=== PATIENT | male | born 1980 | race Caucasian/White ===

== ENCOUNTER 2022-03-12 16:45 | Outpatient (CLI) | payer OTHER, SELFPAY ==
[2022-03-20 22:07] LABS: Calprotectin, Stool 7 mcg/g
== END 2022-03-12 16:46 | disposition home or self-care (01) ==
LOC: ANHLAB 16:46
PROVIDERS: PCP Internal Medicine; Visit Provider Nurse Practitioner
DX: R10.9 Unspecified abdominal pain (principal); R19.4 Change in bowel habit; R19.7 Diarrhea, unspecified
CPT/HCPCS: 83993; 87045; 87427

== ENCOUNTER 2023-07-30 18:03 | Emergency (ER) | payer OTHER, SELFPAY ==
--- NOTE | ~2023-07-30 | XR_ITS ---
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 RESULT: Lines, tubes, and devices: None. Lungs and pleura: Small triangle opacity projecting over the right heart, likely in the anterior rig ht middle lobe. Lungs otherwise clear. Cardiomediastinal silhouette: Stable. Other: No acute osseous or upper abdominal finding. IMPRESSION: No acute cardiopulmonary process. Triangular focus of atelectasis or scar in the right middle lobe. Reviewed, dictated and finalized at location K. PING MACHINE OPERATOR IMPRESSION: No acute cardiopulmonary process. Triangular focus of atelectasis or scar in th e right middle lobe.
[2023-07-30 18:36] VITALS: BP 138/88; PULSE 90; RESP 16; TEMP 36.4; O2SAT 96
--- NOTE | 2023-07-30 19:17 | ED.GENADULT ---
HPI - General Adult General Chief complaint: Upper Respiratory Infection Stated complaint: Cough Time Seen by Provider: 07/30/23 19:18 Source: patient, RN notes reviewed and old records reviewed Mode of arrival: ambulatory Limitations: no limitations History of Present Illness HPI narrative: 42 year old male presents to the [facility] with cough since early June. Has been treated June 16 with doxy and prednisone. Contact his primary care provider who called in Tessalon Perles and cefdinir on the 14 of July. A Medrol Dosepak on the 21 of July. Cough has been lingering, states I can feel my chest rattle. ? Related Data Home Medications Medication Instructions Recorded Confirmed lactobacillus combination no.4 3 3,000 mmu cells PO DAILY 10/04/19 07/30/23 billion cell capsule (Probiotic) fluoxetine 20 mg capsule 20 mg PO DAILY 04/21/23 07/30/23 viloxazine 200 mg capsule,extended 200 mg PO DAILY 04/21/23 07/30/23 release 24 hr (Qelbree) Allergies Allergy/AdvReac Type Severity Reaction Status Date / Time No Known Allergies Allergy Verified 04/21/23 07:13 Review of Systems Review of Systems: All systems reviewed & are unremarkable except as noted in HPI and below Constitutional: Constitutional: Reports no additional constitutional complaints Eyes: Eyes: Reports no additional eye complaints ENT: Reports system reviewed and no additional complaints, except as documented Cardiovascular: Cardiovascular: Reports no additional cardiovascular complaints, Denies chest pain and Denies dyspnea Respiratory: Respiratory: Reports chest congestion, Reports cough, Reports dyspnea and Reports wheezing Gastrointestinal: Gastrointestinal: Reports no additional gastrointestinal complaints, Denies abdominal pain, Denies nausea and Denies vomiting Musculoskeletal: Musculoskeletal: Reports no additional musculoskeletal complaints Integumentary/Breasts: Skin/Breast: Reports system reviewed and no additional complaints, except as docu Neurologic: Reports system reviewed and no additional complaints, except as documented Psychiatric: Psychiatric: Reports no additional psychiatric complaints Allergic/Immunologic: Allergic/Immunologic: Reports no additional allergic/immunologic complaints PMFSH Past Medical History Medical History Colon cancer screening Depression IBS (irritable bowel syndrome) Irritable bowel syndrome with diarrhea Irritable bowel syndrome with diarrhea Surgical History Surgical History History of hand surgery L thumb tendon surgery Family History Family History Father Hypertension Patient's father is in good health Mother Patient's mother is in good health Sibling Patient's brother is in good health Other Skin cancer Social History Social History Smoking status: Former smoker Alcohol intake: current Alcohol use details: social Substance use: never Comments At the time of my signature, I reviewed and agree with the nursing past medical, surgical, social, and family history. There is no relevant family history pertinent to the patient complaint. Exam Const: General: cooperative, healthy appearing, comfortable, no acute distress, well developed, alert and well nourished Nutritional Appearance: well nourished Orientation/consciousness: patient oriented x3 Limitations: no limitations HENMT: Head: normal to inspection Ears: hearing grossly normal bilaterally, external ears normal, TM's normal bilaterally, EAC's normal, mastoids normal and no periauricular adenopathy Face/Nose/Sinus: Normal external nose present, Normal nares present, Normal nasal mucous membranes and turbinates present, normal facial exam and face symmetric Face and sinus: normal
== END 2023-07-30 20:18 | disposition home or self-care (01) ==
PROVIDERS: Emergency Provider Nurse Practitioner; PCP Nurse Practitioner
DX: J98.11 Atelectasis (principal); Z79.899 Other long term (current) drug therapy; Z87.891 Personal history of nicotine dependence
CPT/HCPCS: 71046; 99213; G0463

== ENCOUNTER → 2023-08-10 15:20 | Outpatient (CLI) | payer OTHER, SELFPAY ==
--- NOTE | ~2023-08-10 | CT_ITS ---
EXAMINATION:CT chest high resolution wo nd DATE: 08/10/2023 15:41 INDICATION: Cough. TECHNIQUE: Computed tomography (CT) of the chest was performed without intravenous contrast. Automate d exposure control and iterative reconstruction technique were employed. The dose-length product (DLP ) was 448.36 mGy-cm. COMPARISON: Chest 2 views 07/30/2023 FINDINGS: There is mild scarring at the lung apices. Calcified pulmonary nodules are consistent with old granulomatous disease. There is mild atelectasis bilaterally. There are tree-in-bud opacities in the lower lobes, right worse than left. No pleural effusion. The heart size is normal. No pericardial effusion. There is wall thickening of the esophagus. There is diffuse hepatic steatosis. There is mi ld thoracic spondylosis. IMPRESSION: 1. Tree-in-bud opacities in the lower lobes, consistent with inflammation/infection. 2. Wall thickening of the esophagus suspicious for esophagitis. 3. Diffuse hepatic steatosis. Reviewed, dictated and finalized at location A. UTER PILOT IMPRESSION: 1. Tree-in-bud opacities in the lower lobes, consistent with inflammation/infec tion. 2. Wall thickening of the esophagus suspicious for esophagitis. 3. Diffuse hepatic steatosis.
== END ==
PROVIDERS: PCP Nurse Practitioner; Visit Provider Nurse Practitioner
DX: R05.9 Cough, unspecified (principal); K76.0 Fatty (change of) liver, not elsewhere classified
CPT/HCPCS: 71250

== ENCOUNTER 2023-11-23 14:06 | Outpatient (CLI) | payer OTHER, SELFPAY ==
--- NOTE | ~2023-11-23 | CT_ITS ---
EXAMINATION:CT diagnostic chest wo con DATE: 11/23/2023 14:21 INDICATION: Cough, unspecified. TECHNIQUE: Computed tomography (CT) of the chest was performed without intravenous contrast. Automate d exposure control and iterative reconstruction technique were employed. The dose-length product (DLP ) was 464.00 mGy-cm. COMPARISON: Chest CT 08/10/2023 FINDINGS: Calcified pulmonary nodules are consistent with old granulomatous disease. The tree-in-bud opacities in the lower lobes have resolved. No pleural effusion. The heart size is normal. No pericar dial effusion. There is wall thickening of the distal esophagus. There is diffuse hepatic steatosis. There is mild thoracic spondylosis. IMPRESSION: 1. Wall thickening of the distal esophagus suspicious for esophagitis. 2. Diffuse hepatic steatosis. Reviewed, dictated and finalized at location E.
== END 2023-11-23 14:07 ==
PROVIDERS: PCP Physician Assistant; Visit Provider Physician Assistant
DX: R05.9 Cough, unspecified (principal); J98.11 Atelectasis; J06.9 Acute upper respiratory infection, unspecified; K76.0 Fatty (change of) liver, not elsewhere classified
CPT/HCPCS: 71250

== ENCOUNTER 2024-11-30 16:26 | Emergency (ER) | payer OTHER, SELFPAY ==
[2024-11-30 16:45] VITALS: BP 141/90; PULSE 81; RESP 16; TEMP 36.3; O2SAT 99
--- NOTE | 2024-11-30 17:08 | ED_ITS ---
HPI - URI/Sore Throat General Chief Complaint: Upper Respiratory Infection Stated Complaint: SINUS CONGESTION Time Seen by Provider: 11/30/24 16:55 Source: patient and RN notes reviewed Mode of arrival: ambulatory Limitations: no limitations History of Present Illness HPI Narrative: 44-year-old male presents [facility] complaining of upper respiratory symptoms for 1 week. Patient said the symptoms started as a sore throat then progressed to with congestion and sinus pressure. Patient says he has been taking [id number] Zyrtec, ibuprofen, Sudafed for symptom management with mild relief. Patient said he does not feel like he is getting better he feels like his symptoms are worsening over the last 2 days. Patient says that the sinus pressure is worse reports now having green/yellow nasal discharge. Patient also reports having a productive cough and coughing up green/yellow discharge. Patient says the sinus pressure is worse with bending over at the waist. Patient has a history of pneumonia. Denies any other significant past medical history. Patient denies any fevers, body aches, chills, chest pain or shortness of breath. Related Data Home Medications ?Medication ?Instructions ?Recorded ?Confirmed ?Last Taken ?Type lactobacillus combination no.4 3 3,000 mmu cells PO DAILY 10/04/19 11/30/24 Unknown History billion cell capsule (Probiotic) fluoxetine 20 mg capsule 20 mg PO DAILY 04/21/23 11/30/24 Unknown History viloxazine 200 mg capsule,extended 200 mg PO DAILY 04/21/23 11/30/24 Unknown History release 24 hr (Qelbree) Allergies Allergy/AdvReac Type Severity Reaction Status Date / Time No Known Allergies Allergy Verified 11/30/24 16:44 Review of Systems Review of Systems: CONSTITUTIONAL: Denies fever, chills, body aches, or sweats. EYES: Denies visual changes, redness, or discharge. ENT: Denies rhinorrhea, or otalgia. Positive for congestion sore throat. CARDIOVASCULAR: Denies chest pain, palpitations, or edema. RESPIRATORY: Positive for cough. Negative for dyspnea. GASTROINTESTINAL: Denies abdominal pain, nausea, vomiting, or diarrhea. GENITOURINARY: Denies dysuria or hematuria. SKIN: Denies rash or itching. MUSCULOSKELETAL: Denies back pain, joint pain, or myalgia. NEUROLOGIC: Denies headache, numbness, or weakness. PSYCHIATRIC: Denies anxiety or depression. All other systems reviewed are negative, except as documented in HPI. [facility] Past Medical History Medical History Colon cancer screening Depression IBS (irritable bowel syndrome) Irritable bowel syndrome with diarrhea Irritable bowel syndrome with diarrhea Surgical History Surgical History History of hand surgery L thumb tendon surgery Family History Family History Father Hypertension Patient's father is in good health Mother Patient's mother is in good health Sibling Patient's brother is in good health Other Skin cancer Social History Social History (Updated 04/28/24 @ 07:15 by Priya Dumont CMA) Smoking status: Former smoker Alcohol intake: current Alcohol use details: social Substance use: never Current Housing: Decline to Answer Concerned About Future Housing: Decline to Answer Difficulty Paying Gas/Electric Bills: Decline to Answer Difficulty Paying for Meds: Decline to Answer Currently Unemployed: Decline to Answer Education: Decline to Answer Difficulty w/ Childcare or Family Care: Decline to Answer Comments At the time of my signature, I reviewed and agree with the nursing past medical, surgical, social, and family history. There is no relevant family history pertinent to the patient complaint. Exam Narrative: GENERAL: This is a well-nourished, well-developed adult, in no apparent distress. They are non ill-appearing, nontoxic appearing. HEAD: normocephalic, atraumatic. EYES: Sclera clear/white. Conjunctiva normal. Vision is grossly intact. Extraocular movements intact EARS: External ears normal, auditory canals clear and without drainage, TMs normal without perforation. Hearing grossly intact. NOSE: External nose normal with no obvious nasal discharge, nasal turbinates erythematous bilaterally, no rhinorrhea. Sinus tenderness to palpation to the maxillary sinuses. THROAT: Mucous membranes moist, posterior pharynx erythema without swelling, Uvula midline. Postnasal drip present. No exudate. NECK: Neck supple, non-tender without lymphadenopathy, masses or thyromegaly. CARDIOVASCULAR: Regular rate and rhythm without murmurs, gallops, or rubs. RESPIRATORY: Clear to auscultation. Breath sounds equal bilaterally. No wheezes, rales, or rhonchi. SKIN: warm, Dry, intact with no suspicious lesions or rash, good texture and turgor. NEURO: awake, alert, and oriented to person, place and time. There were no obvious focal neurologic abnormalities. EXTREMITIES: No joint tenderness, effusion, or edema noted. BACK: Nontender without deformity Course Course Emergency Course: Portions of this record may have been created with voice recognition software Level of Care: Express Care Visit Vital Signs Vital signs: Vital Signs Temperature 97.3 F L 11/30/24 16:45 Pulse Rate 81 11/30/24 16:45 Respiratory Rate 16 11/30/24 16:45 Blood Pressure 141/90 H 11/30/24 16:45 Pulse Oximetry 99 11/30/24 16:45 Temperature 97.3 F L 11/30/24 16:45 Pulse Rate 81 11/30/24 16:45 Respiratory Rate 16 11/30/24 16:45 Blood Pressure 141/90 H 11/30/24 16:45 Pulse Oximetry 99 11/30/24 16:45 Reviewed MDM - URI/Sore Throat MDM Narrative Medical decision making narrative: Patient likely started with a viral illness. Given patient's length of symptoms and that the symptoms have started to worsen around day 5/6 it is likely he is developing a secondary bacterial sinusitis. Will treat empirically with Augmentin. Discussed physical exam findings. Advised supportive measures and signs/symptoms to go to the ER. Pt is appropriate for outpt treatment and f/u. Differential Diagnosis Differential diagnosis: Likely upper respiratory infection, sinusitis and pharyngitis Critical Care Time Critical Care Time Critical Care Time: No Discharge Plan Discharge Clinical Impression: Acute bacterial rhinosinusitis Patient Disposition: Home Condition: Stable Instructions: Antibiotic Form, Sinusitis (ED) Additional Instructions: Take the antibiotics as directed and complete the course even if you start to feel better. You may use a Neti pot saline rinse 3 times a day with lukewarm distilled water. Continue to take Tylenol or Motrin for pain. Use a humidifier or vaporizer at night. Drink plenty of water. 8-10 glasses per day. Use flonase 2 times per day for 5 days then as needed Take mucinex 2 times per day and be sure to take with 8oz of water. Follow up with Primary provider in 3 days. Go to the ER if he develops fevers, difficulty breathing, worsening symptoms, or any other concerns. Patient Language: Nepalese Prescriptions: New amoxicillin-pot clavulanate 875-125 mg tablet 1 tablet PO Q12H 7 Days Qty: 14 0RF No Action (DME) Aerochamber MV Spacer See Rx Instructions .Route Qty: 1 0RF Rx Instructions: As directed Probiotic 3 billion cell capsule 3,000 mmu cells PO DAILY Rx Instructions: administer with a meal fluoxetine 20 mg capsule 20 mg PO DAILY Qelbree 200 mg capsule,extended release 24hr 200 mg PO DAILY albuterol sulfate 90 mcg/actuation HFA aerosol inhaler 2 inh inhalation Q4H PRN (Reason: shortness of breath, cough, or wheezing) Qty: 8.5 0RF Follow-up/Referrals: Gretchen Serna APRN [Primary Care Provider] - Time of Disposition: 17:07
== END 2024-11-30 17:13 | disposition home or self-care (01) ==
PROVIDERS: PCP Nurse Practitioner Family
DX: J01.90 Acute sinusitis, unspecified (principal); K58.9 Irritable bowel syndrome, unspecified; F32.A Depression, unspecified; Z87.891 Personal history of nicotine dependence
CPT/HCPCS: 99213; G0463

== ENCOUNTER 2025-01-18 18:34 | Emergency (ER) | payer OTHER, SELFPAY ==
--- OUTSIDE RECORDS SUMMARY | 2025-01-18 18:36 | XMS_ITS | Clinical Summary ---
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 Gender Identity Not on file Sexual Orientation Not on file Plan of Treatment Health Maintenance Due Date Last Done Comments Hepatitis C Virus (HCV) Screening 1982 TdaP Immunization 1982 Hepatitis B Immunization (1 of 3 - 19+ 3-dose series) 2001 Influenza Immunization (#1) 2024 05/16/2019 SARS-COV-2 Immunization ( season) 2024 08/13/2021, 10/23/2020, 09/13/2020 Respiratory Syncytial Virus (RSV) Immunization (Adult) (1 - 1-dose 75+ series) 2057 Meningococcal Immunization (ACWY) Aged Out No longer eligible b ased on patient's age to complete this topic Pneumococcal Immunization Combined Aged Out No longer eligible b ased on patient's age to complete this topic Rotavirus Immunization Aged Out No lo nger eligible based on patient's age to complete this topic
--- OUTSIDE RECORDS SUMMARY | 2025-01-18 18:36 | XMS_ITS | Encounter Summary ---
Author Organization [facility] Address [address] [place] [address] Care Team Providers Care Echo Vascular Tech Name Role Phone Amando Weir MD Primary Care Provider + Encounter Details Date Type Department Care Team (Late st Contact Info) Description 09/04/2016 Lab Requisition [facility] General Laboratory Services S Pending Sale To [facility] [address] [address] Andrea Leary MD NO ADDRESS ON FILE Encounter for general adult medical examination without abnormal findings Social History Tobacco Use Types Packs/Day Years Used Date Smoking Tobacco: Never Assessed Sex and Gender Information Value Date Recorded Sex Assigned at Not on file 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 Gender Identity Not on file Sexual Orientation Not on file documented as of this encounter Plan of Treatment Not on file documented as of this encounter Procedures Procedure Name Priority Date/Time Associated Diagnosis Comments URINALYSIS MICROSCOPY ONLY Routine 09/04/2016 10:30 AM SUMO WRESTLER Encounter for general adult medical examination without abnormal findings CBC WITH DIFFERENTIAL Routine 09/04/2016 10:30 AM SUMO WRESTLER Encounter for general adult medical examination without abnormal findings LIPID PANEL Routine 09/04/2016 10:30 AM SUMO WRESTLER Encounter for general adult medical examination without abnormal findings COMPREHENSIVE METABOLIC PANEL Routine 09/04/2016 10:30 AM SUMO WRESTLER Encounter for general adult medical examination without abnormal findings documented in this encounter Results * (ABNORMAL) URINALYSIS MICROSCOPY ONLY (09/04/2016 10:30 AM SUMO WRESTLER) WBC UA 0-2 0 - 2 /hpf 09/04/2016 4:14 PM [facility] - [facility] RBC UA 0-2 0 - 2 /hpf 09/04/2016 4:14 PM [facility] BACTERIA UA Negative Negative /hpf 09/04/2016 4:[address] [facility] LABORATORY SERVICES - [facility] HYALINE CAST 3-5(A) None Seen, 0-2 /lpf 09/04/2016 4:14 PM [facility] Urine URINE SPECIMEN OBTAINED BY CLEAN CATCH PROCEDURE / Unknown Collection / Unknown 09/04/2016 10:30 AM SUMO WRESTLER 09/04/2016 3:40 PM SUMO WRESTLER Andrea Leary MD URINE ORDERABLES Final Result Performing Organization Address City/State/[facility] Co de Phone Number [facility] [employer] [facility]# [id number] [address] [place] [address] * (ABNORMAL) CBC WITH DIFFERENTIAL (09/04/2016 10:30 AM SUMO WRESTLER) WBC 8.2 4.0 - 9.8 K/uL 09/04/2016 4:[address] [facility] LABORATORY SERVICES [facility] RBC 5.31 4.50 - 5.40 M/uL 09/04/2016 4:[address] [facility] LABORATORY SERVICES [facility] HEMOGLOBIN 15.7 13.6 - 16.5 g/dL 09/04/2016 4:[address] [facility]ATORY SERVICES [facility] HEMATOCRIT 47.1 40.0 - 48.0 % 09/04/2016 4:[address] [facility]AT[facility] SERVICES [facility] MCV 88.7 82.0 - 99.0 fL 09/04/2016 4:[address] [facility]ATORY [facility] MCH 29.6 27.2 - 32.6 pg 09/04/2016 4:[address] [facility]ATORY SERVICES [facility] MCHC 33.3 31.5 - 35.5 g/dL 09/04/2016 4:21 PM SUMO WRESTLER [facility] RDW 12.3 11.5 - 14.5 % 09/04/2016 4:21 PM SUMO WRESTLER [facility] - [facility] RDW-STDEV 39.7 37.1 - 48.7 fL 09/04/2016 4:[address] [facility] - [facility] PLATELETS 338 140 - 350 K/uL 09/04/2016 4:[address] [facility] - [facility] MPV 10.4 9.3 - 12.4 fL 09/04/2016 4:[address] [facility] NEUTROPHILS 63 % 09/04/2016 4:[address] [facility] LYMPHOCYTES 26 % 09/04/2016 4:21 PM SUMO WRESTLER [facility] MONOCYTES 6 % 09/04/2016 4:[address] [facility] EOSINOPHILS 2 % 09/04/2016 4:21 PM SUMO WRESTLER [facility] BASOPHILS 2 % 09/04/2016 4:21 PM SUMO WRESTLER [facility] IMMATURE GRANULOCYTES 1 % 09/04/2016 4:21 PM SUMO WRESTLER [facility] Comment:IG (Immature Granulo cyte) count includes Metamyelocytes, Myelocytes, and Promyelocytes NEUTROPHIL ABSOLUTE 5.18 1.90 - 7.00 K/uL 09/04/2016 4:[address] [facility] - [facility] LYMPHOCYTE ABSOLUTE 2.16 0.70 - 4.50 K/uL 09/04/2016 4:21 PM SUMO WRESTLER [facility] - [facility] MONOCYTE ABSOLUTE 0.49 0.10 - 1.30 K/uL 09/04/2016 4:21 PM SUMO WRESTLER [facility] - [facility] EOSINOPHIL ABSOLUTE 0.19 0.00 - 0.70 K/uL 09/04/2016 4:21 PM [email or web address] LABORATORY SERVICES - [facility] BASOPHILS ABSOLUTE 0.12 0.00 - 0.20 K/uL 09/04/2016 4:[address] [facility] LAB[facility]ATORY [facility] - [facility] IMMATURE GRANULOCYTES ABSOLUTE 0.04(H) 0.00 - 0.03 K/uL 09/04/2016 4:[address] [facility] - [facility] Blood Collection / Unknown 09/04/2016 10:30 AM SUMO WRESTLER 09/04/2016 3:40 PM SUMO WRESTLER us Andrea Leary MD HEMATOLOGY ORDERABLES Final Result [facility] [employer] [facility] CLIA# [id number] [address] [place] [address] * (ABNORMAL) LIPID PANEL (09/04/2016 10:30 AM SUMO WRESTLER) CHOLESTEROL 221(H) <200 mg/dL 09/04/2016 8:[address] [facility] [employer] [facility] TRIGLYCERIDE 162(H) <150 mg/dL 09/04/2016 8:[address] [facility] [employer] [facility] HDL 41 40 - 59 mg/dL 09/04/2016 8:[address] [facility] [employer] [facility] LDL CALCULATED 148(H) <100 mg/dL 09/04/2016 8:[address] [facility] [employer] [facility] NON-HDL CHOLESTEROL 180(H) <130 mg/dL 09/04/2016 8:[address] [facility] [employer] [facility] Blood Collection / Unknown 09/04/2016 10:30 AM SUMO WRESTLER 09/04/2016 3:40 PM SUMO WRESTLER Narrative [facility] LABORATORY [facility] - 09/04/2016 8:10 PM SUMO WRESTLER TOTAL CHOLESTEROL mg/dL Desirable <200 Borderline high 200-239 High >=240 TRIGLYCERIDES mg/dL Normal <150 Borderline high 150-199 High 200-499 Very high >=500 HDL CHOLESTEROL mg/dL Low <40 Normal 40-59 Desirable >=60 NON HDL CHOLESTEROL mg/dL Optimal <130 Near Optimal 130-159 Borderline High 160-189 Very High >=190 Calculated LDL mg/dL Optimal <100 Near Optimal 100-129 Borderline High 130-159 High 160-189 Very High >=190 ATPIII Guidelines Reference Ranges for Lipid Panels (NCEP/AMA) Andrea Leary MD CHEMISTRY ORDERABLES F inal Result [facility] [employer] [facility] CLIA# [id number] [address] [place] [address] [place] CHAVEZ [address] * (ABNORMAL) COMPREHENSIVE METABOLIC PANEL (09/04/2016 10:30 AM SUMO WRESTLER) SODIUM 140 136 - 145 mmol/L 09/04/2016 8:10 PM [email or web address] LAB[facility]ATORY SERVICES - [facility] POTASSIUM 4.8 3.5 - 5.0 mmol/L 09/04/2016 8:10 PM [email or web address] [facility] - [facility] CHLORIDE 100 98 - 107 mmol/L 09/04/2016 8:10 PM [email or web address] [facility] - [facility] CO2 27 22 - 29 mmol/L 09/04/2016 8:10 PM [email or web address] [facility] - [facility] CALCIUM 10.3(H) 8.6 - 10.2 mg/dL 09/04/2016 8:10 PM [email or web address] [facility] - [facility] BUN 12 6 - 20 mg/dL 09/04/2016 8:10 PM [email or web address] [facility] - [facility] CREATININE 0.88 0.67 - 1.17 mg/dL 09/04/2016 8:10 PM [email or web address] [facility] - [facility] GLUCOSE 96 74 - 99 mg/dL 09/04/2016 8:10 PM [email or web address] [facility] - [facility] TOTAL PROTEIN 8.1 6.7 - 8.6 g/dL 09/04/2016 8:10 PM [email or web address] [facility] - [facility] ALBUMIN 5.2 3.5 - 5.2 g/dL 09/04/2016 8:10 PM [email or web address] [facility] - [facility] BILIRUBIN TOTAL 0.8 0.3 - 1.2 mg/dL 09/04/2016 8:10 PM [email or web address] [facility] - [facility] ALKALINE PHOSPHATASE 84 40 - 129 U/L 09/04/2016 8:10 PM [email or web address] [facility] AST 27 <41 U/L 09/04/2016 8:10 PM [email or web address] [facility] ALT 56(H) <42 U/L 09/04/2016 8:10 PM [email or web address] GFR >60 >=60 mL/min/1.7 3 sq meter 09/04/2016 8:10 PM [email or web address] Comment: eGFR has not been validated for use in the elderly (> 70 years of age), women, patients with serious co-morbid conditions, or persons with extremes of body size or muscle mass and should also be interpreted with caution in patients with acute kidney failure, dialysis dependent patients, patients reporting exceptional dietary intake (e.g. vegetarian diet, high protein diets, creatine supplementation), and patients with severe liver disease. Based on National Kidney Disease Education Program If patient is , please refer to the GFR result. GFR, >60 >=60 mL/min/1.7 3 sq meter 09/04/2016 8:10 PM SUMO WRESTLER [facility] LABORATORY SERVICES - [facility] ANION GAP 13 8 - 16 mmol/L 09/04/2016 8:10 PM SUMO WRESTLER [facility] LABORATORY SERVICES [facility] Blood Collection / Unknown 09/04/2016 10:30 AM SUMO WRESTLER 09/04/2016 3:40 PM SUMO WRESTLER Andrea Leary MD CHEMISTRY ORDERABLES F inal Result [id number] [address] [place] [address] documented in this encounter Visit Diagnoses Diagnosis Encounter for general adult medical examination without abnormal findings Routine general medical examination at a health care facility documented in this encounter Care Teams Echo Vascular Tech Relationship Specialty Start Date End Date Amando Weir MD [address] [place] [address] PCP - General Internal Medicine 09/04/16 documented as of this encounter
--- OUTSIDE RECORDS SUMMARY | 2025-01-18 18:36 | XMS_ITS | Clinical Summary ---
Author Organization [facility] Address [address] [place] [address] [place] [address] Care Team Providers Care Crester Name Role Phone Amando Weir MD Primary Care Provider + Allergies No known active allergies Medications albuterol (PROVENTIL HFA) 90 mcg/Actuation Inhalation HFAAIndications :Cough Take 2 Puffs by inhalation every 6 hours as needed. 1 Inhaler 1 0 Active Active Problems No known active problems Social History Tobacco Use Types Packs/Day Years Used Date Smoking Tobacco: Never Assessed Sex and Gender Information Value Date Recorded Sex Assigned at Not on file Legal Sex Male 5:50 AM HEALTH CARE TECHNICIAN Gender Identity Not on file Sexual Orientation Not on file Last Filed Vital Signs Vital Sign Reading Time Taken Comments Blood Pressure 110/80 08/09/2009 10:56 AM HEALTH CARE TECHNICIAN Pulse 72 08/09/2009 10:56 AM HEALTH CARE TECHNICIAN Temperature 36.4 C (97.6 F) 08/09/2009 10:56 AM HEALTH CARE TECHNICIAN Respiratory Rate 8 08/09/2009 10:56 AM HEALTH CARE TECHNICIAN Oxygen Saturation - - Inhaled Oxygen Concentration - - Weight 88 kg (194 lb) 08/09/2009 10:56 AM HEALTH CARE TECHNICIAN Height 188 cm (6' 2) 08/09/2009 10:56 AM HEALTH CARE TECHNICIAN Body Mass Index 24.91 08/09/2009 10:56 AM HEALTH CARE TECHNICIAN Plan of Treatment Health Maintenance Due Date Last Done Comments DTAP/TDAP/TD VACCINES (1 - Tdap) 2001 HEPATITIS B VACCINES (1 of 3 - 19+ 3-dose series) 2001 INFLUENZA VACCINE (#1) 2024 HPV VACCINES Aged Out No longer eligi ble based on patient's age to complete this topic Care Teams Crester Relationship Specialty Start Date End Date Amando Weir MD [address] [place] [phone] PCP - General Internal Medicine 09/04/16
--- OUTSIDE RECORDS SUMMARY | 2025-01-18 18:36 | XMS_ITS | Encounter Summary ---
Author Organization [facility] Address [address] [place] [address] Care Team Providers Care Camera Machinist Name Role Phone Amando Weir MD Primary Care Provider + Encounter Details Date Type Department Care Team (Late st Contact Info) Description 2018 Lab Requisition [facility] Laboratory Services S [facility] [address] [place] [address] [place] [address] [address] [place] [phone] Encounter for general adult medical examination without abnormal findings Social History Tobacco Use Types Packs/Day Years Used Date Smoking Tobacco: Never Assessed Sex and Gender Information Value Date Recorded Sex Assigned at Not on file Legal Sex Male 5:50 AM GI PHYSICIAN Gender Identity Not on file Sexual Orientation Not on file documented as of this encounter Plan of Treatment Not on file documented as of this encounter Procedures Procedure Name Priority Date/Time Associated Diagnosis Comments CBC WITH DIFFERENTIAL Routine 2018 8:18 AM CDT Encounter for general adult medical examination without abnormal findings LIPID PANEL Routine 2018 8:18 AM CDT Encounter for general adult medical examination without abnormal findings COMPREHENSIVE METABOLIC PANEL Routine 2018 8:18 AM CDT Encounter for general adult medical examination without abnormal findings documented in this encounter Results * CBC WITH DIFFERENTIAL (2018 8:18 AM CDT) [facility] WBC 5.5 4.0 - 9.8 K/uL 2018 5:05 PM CDT [facility] LABORATORY SERVICES - [facility] RBC 5.18 4.50 - 5.40 M/uL 2018 5:05 PM CDT [facility] LABORATORY SERVICES - [facility] HEMOGLOBIN 14.8 13.6 - 16.5 g/dL 2018 5:05 PM CDT [facility] LABORATORY SERVICES - [facility] HEMATOCRIT 46.8 40.0 - 48.0 % 2018 5:05 PM CDT [facility]AT[facility] - [facility] MCV 90.3 82.0 - 99.0 fL 2018 5:05 PM CDT [facility] - [facility] MCH 28.6 27.2 - 32.6 pg 2018 5:05 PM CDT [facility] - [facility] MCHC 31.6 31.5 - 35.5 g/dL 2018 5:05 PM CDT [facility] - [facility] RDW 12.3 11.5 - 14.5 % 2018 5:05 PM CDT [facility] - [facility] RDW-STDEV 40.6 37.1 - 48.7 fL 2018 5:05 PM CDT [facility] - [facility] PLATELETS 331 140 - 350 K/uL 2018 5:05 PM CDT [facility] - [facility] MPV 10.5 9.3 - 12.4 fL 2018 5:05 PM CDT [facility] - [facility] NEUTROPHILS 50 % 2018 5:05 PM CDT [facility] - [facility] LYMPHOCYTES 36 % 2018 5:05 PM CDT [facility] - [facility] MONOCYTES 9 % 2018 5:05 PM CDT [facility] - [facility] EOSINOPHILS 3 % 2018 5:05 PM CDT [facility] - [facility] BASOPHILS 2 % 2018 5:05 PM CDT [facility] - [facility] IMMATURE GRANULOCYTES 0 % 2018 5:05 PM CDT [facility] NEUTROPHIL ABSOLUTE 2.74 1.90 - 7.00 K/uL 2018 5:05 PM CDT [facility] LABORATORY SERVICES [facility] LYMPHOCYTE ABSOLUTE 1.96 0.70 - 4.50 K/uL 2018 5:05 PM CDT [facility] LAB[facility]ATORY SERVICES - [facility] MONOCYTE ABSOLUTE 0.49 0.10 - 1.30 K/uL 2018 5:05 PM CDT [facility] LAB[facility]ATORY [facility] EOSINOPHIL ABSOLUTE 0.15 0.00 - 0.70 K/uL 2018 5:05 PM CDT [facility] LAB[facility]ATORY SERVICES [facility] BASOPHILS ABSOLUTE 0.10 0.00 - 0.20 K/uL 2018 5:05 PM CDT [facility] LAB[facility]ATORY [facility] IMMATURE GRANULOCYTES ABSOLUTE 0.02 0.00 - 0.03 K/uL 2018 5:05 PM CDT [facility] Blood Collection / Unknown 2018 8:18 AM CDT 2018 4:41 PM CDT Edil Smiley MD HEMATOLOGY ORDERABLES Final Result [facility] LABORATORY [facility]# [id number] [address] [facility] [place] [address] * (ABNORMAL) LIPID PANEL (2018 8:18 AM CDT) CHOLESTEROL 222(H) <200 mg/dL 2018 6:46 PM CDT [facility] TRIGLYCERIDE 96 <150 mg/dL 2018 6:46 PM CDT [facility] HDL 33(L) 40 - 59 mg/dL 2018 6:46 PM CDT [facility] LABORATORY SERVICES - . [facility] LDL CALCULATED 170(H) <100 mg/dL 2018 6:46 PM CDT [facility] LABORATORY SERVICES - . [facility] NON-HDL CHOLESTEROL 189(H) <130 mg/dL 2018 6:46 PM CDT [facility] Blood Collection / Unknown 2018 8:18 AM CDT 2018 4:41 PM CDT Narrative [facility] LABORATORY SERVICES [facility] - 2018 6:46 PM CDT TOTAL CHOLESTEROL mg/dL Desirable <200 Borderline high [...] Guidelines Reference Ranges for Lipid Panels (NCEP/AMA) Edil Smiley MD CHEMISTRY ORDERABLES Final R esult [facility] LABORATORY [facility]# [id number] [address] [place] [address] * (ABNORMAL) COMPREHENSIVE METABOLIC PANEL (2018 8:18 AM CDT) SODIUM 142 136 - 145 mmol/L 2018 6:46 PM T [facility] LABORATORY SERVICES [facility] POTASSIUM 4.7 3.5 - 5.0 mmol/L 2018 6:46 PM [facility] LABORATORY [facility] CHLORIDE 104 98 - 107 mmol/L 2018 6:46 PM T [facility] LABORATORY [facility] CO2 27 22 - 29 mmol/L 2018 6:46 PM T [facility] LABORATORY [facility] CALCIUM 9.7 8.6 - 10.2 mg/dL 2018 6:46 PM T [facility] LABORATORY SERVICES - [facility] BUN 16 6 - 20 mg/dL 2018 6:46 PM [facility] LABORATORY [facility] CREATININE 0.79 0.67 - 1.17 mg/dL 2018 6:46 PM [facility] LABORATORY SERVICES [facility] GLUCOSE 104(H) 74 - 99 mg/dL 2018 6:46 PM T [facility] LABORATORY [facility] TOTAL PROTEIN 7.4 6.7 - 8.6 g/dL 2018 6:46 PM [facility] LABORATORY [facility] ALBUMIN 5.1 3.5 - 5.2 g/dL 2018 6:46 PM T [facility] LABORATORY [facility] BILIRUBIN TOTAL 0.5 0.3 - 1.2 mg/dL 2018 6:46 PM [facility] LABORATORY [facility] ALKALINE PHOSPHATASE 82 40 - 129 U/L 2018 6:46 PM [facility] LABORATORY [facility] AST 20 <41 U/L 2018 6:46 PM [facility] LABORATORY [facility] ALT 42(H) <42 U/L 2018 6:46 PM [facility] GFR >60 >=60 mL/min/1.7 3 sq meter 2018 6:46 PM [facility] [employer] [facility] Comment: eGFR has not been validated for [...] GFR, >60 >=60 mL/min/1.7 3 sq meter 2018 6:46 PM T [facility] LABORATORY [facility] ANION GAP 11 8 - 16 mmol/L 2018 6:46 PM [facility] LABORATORY [facility] Blood Collection / Unknown 2018 8:18 AM CDT 2018 4:41 PM CDT [facility] LABORATORY SERVICES [facility] - 2018 6:46 PM CDT Samples containing indocyanine green cause interferences on Total and/or Direct Bilirubin and must not be measured. Edil Smiley MD CHEMISTRY ORDERABLES Final R esult [facility]# [id number] [address] [place] [address] documented in this encounter Visit Diagnoses Diagnosis Encounter for general adult medical examination without abnormal findings Routine general medical examination at a health care facility documented in this encounter Care Teams Camera Machinist Relationship Specialty Start Date End Date Amando Weir MD [address] [place] [address] PCP - General Internal Medicine 09/04/16 documented as of this encounter
[2025-01-18 18:47] VITALS: BP 149/90; PULSE 88; RESP 18; TEMP 36.6; O2SAT 100
[2025-01-18 18:57] VITALS: BP 150/72; PULSE 88; RESP 20; TEMP 36.8; O2SAT 100
--- NOTE | 2025-01-18 19:09 | PC.NURSE ---
Received report from KIM Coombs for cont. of care. Pt presents to ED after a fall from a 5ft ladder, denies LOC, - blood thinners. Pt has laceration to R eyebrown, and bilateral arm abrasions. Pt c/o 5/10 head pain, denies n/v, dizziness and/or vision changes.
--- NOTE | 2025-01-18 19:26 | ED_ITS ---
HPI - Head Injury General Chief complaint: Head Injury Stated complaint: fall 5ft off ladder, hit head Time Seen by Provider: 01/18/25 19:01 History of Present Illness HPI Narrative: 44-year-old otherwise healthy male presenting to the emergency department after falling off a ladder while trimming some branches off a tree. He states he fell backwards after the ladder gave away when a branch fell and knocked down. He fell onto his right side and hit his head but did not lose consciousness. Was able to get up right away without any significant difficulty. Has been acting appropriately without any mental status changes, nausea, vomiting. Patient denies any complaints at this time states he has 3/10 pain in his extremities were he braced his fall. He has small lacerations over his palm and right-sided supraorbital region the eyebrow but no other appreciable injuries. Ambulated without any ataxia or antalgic gait. is present at bedside to wash the events unfold and has been monitoring him without any concerns. Patient took no medications prior to arrival but does not take any blood thinner medications, any daily prescription medications and has no allergies to his knowledge. He is not sure about his tetanus status. No weakness, sensory deficits or other jim rological concerns. Related Data Home Medications ?Medication ?Instructions ?Recorded ?Confirmed ?Last Taken ?Type lactobacillus combination no.4 3 3,000 mmu cells PO DAILY 10/04/19 11/30/24 Unknown History billion cell capsule (Probiotic) fluoxetine 20 mg capsule 20 mg PO DAILY 04/21/23 11/30/24 Unknown History viloxazine 200 mg capsule,extended 200 mg PO DAILY 04/21/23 11/30/24 Unknown History release 24 hr (Qelbree) Allergies Allergy/AdvReac Type Severity Reaction Status Date / Time No Known Allergies Allergy Verified 11/30/24 16:44 Review of Systems Review of Systems: As reviewed above in HPI [facility] Past Medical History Medical History Colon cancer screening Irritable bowel syndrome with diarrhea Irritable bowel syndrome with diarrhea IBS (irritable bowel syndrome) Depression Surgical History Surgical History History of hand surgery L thumb tendon surgery Family History Family History Father Hypertension Patient's father is in good health Mother Patient's mother is in good health Sibling Patient's brother is in good health Other Skin cancer Social History Social History Smoking status: Former smoker Alcohol intake: current Alcohol use details: social Substance use: never Current Housing: Decline to Answer Concerned About Future Housing: Decline to Answer Difficulty Paying Gas/Electric Bills: Decline to Answer Difficulty Paying for Meds: Decline to Answer Currently Unemployed: Decline to Answer Education: Decline to Answer Difficulty w/ Childcare or Family Care: Decline to Answer Exam Narrative: GENERAL: [Well-appearing, well-nourished, and in no acute distress.] HEAD: Normocephalic, laceration over the right eyebrow. EYES: [PERRLA and EOMI.] ENT: Nares clear, no rhinorrhea or epistaxis. Mucous membranes moist. NECK: Supple. CHEST: [Clear to auscultation. No respiratory distress.] HEART: [Regular rate and rhythm]. No murmur heard. [Normal peripheral pulses.] ABDOMEN: [Soft, nondistended], [nontender], [No rigidity or guarding] EXTREMITIES: Normal range of motion. [No edema.] SKIN: 2.5 cm laceration over the left palm in the center without any significant bleeding. Minor dehiscence with underlying muscle exposure but no tendon exposure. 2.5 cm laceration over the right lateral eyebrow with dehiscence but no restricted range of motion of the underlying muscles. No exposed tendons. No active bleeding. Superficial abrasions over the bilateral forearms but no bleeding or skin breakdown otherwise. NEURO: [No focal deficits]. Alert and oriented [x3.] PSYCH: [Normal mood and affect.] Course Vital Signs Vital signs: Vital Signs Temperature 36.6 C 01/18/25 18:47 Pulse Rate 88 01/18/25 18:47 Respiratory Rate 18 01/18/25 18:47 Blood Pressure 149/90 H 01/18/25 18:47 Pulse Oximetry 100 01/18/25 18:47 Oxygen Delivery Room Air 01/18/25 18:47 Temperature 36.8 C 01/18/25 18:57 Pulse Rate 88 01/18/25 18:57 Respiratory Rate 20 01/18/25 18:57 Blood Pressure 150/72 H 01/18/25 18:57 Pulse Oximetry 100 01/18/25 18:57 Oxygen Delivery Room Air 01/18/25 18:57 Procedures Laceration Laceration 1: Date: 01/18/25 Time: 20:10 Site: face Side (If applicable): right Size (cm): 2.5 Description: stellate, irregular and clean Depth: simple, single layer Local Anesthetic: lidocaine 1% Amount of anesthesia used (mL): 3 Pre-repair: wound explored, irrigated extensively and deep structures intact ====== Skin Level ====== Skin layer closed with: nylon Size (cm): 5-0 Number of sutures: 7 Technique: simple, interrupted ====== Subcutaneous Layer ====== ====== Muscle Layer ====== ====== Tendon Layer ====== Laceration 2: Date: 01/18/25 Time: 20:15 Site: hand Side (If applicable): left Size (cm): 2.5 Description: linear and clean Depth: simple, single layer Local Anesthetic: lidocaine 1% Amount of anesthesia used (mL): 3 Pre-repair: wound explored, irrigated and deep structures intact ====== Skin Level ====== Skin layer closed with: nylon Size (cm): 5-0 Number of sutures: 5 Technique: simple, interrupted ====== Subcutaneous Layer ====== ====== Muscle Layer ====== ====== Tendon Layer ====== MDM - Head Injury MDM Narrative Medical decision making narrative: 44-year-old male with no pertinent past medical history presenting to the emergency department after falling off a ladder while trimming a tree. He states he fell into his right-sided face and head but did not lose consciousness. Does not take any blood thinner medications. He is acting appropriately without any mental status changes and has no neurological complaints or headache. Denies any numbness, tingling, nausea, vomiting, vision changes, neck pain. No back pain. His examination is unremarkable aside from superficial lacerations. 2.5 cm laceration over the left palm in the center without any significant bleeding. Minor dehiscence with underlying muscle exposure but no tendon exposure. 2.5 cm laceration over the right lateral eyebrow with dehiscence but no restricted range of motion of the underlying muscles. No exposed tendons. No active bleeding. Superficial abrasions over the bilateral forearms but no bleeding or skin breakdown otherwise. We discussed CT imaging with him given his mechanism of injury but given that he is low risk and meet [place] head CT criteria we can safely is glued this and he was agreeable to not proceed with imaging and his was comfortable with this and will monitor med home after discharge. Patient given a tetanus update and was repaired and given instructions on return precautions and follow-up instructions. Discharge Plan Discharge Clinical Impression: CHI (closed head injury), Hand laceration, Forehead laceration Patient Disposition: Home Condition: Stable Instructions: Antibiotic Form, Laceration (DC), Head Injury (ED), Facial Laceration (ED) Additional Instructions: You have 7 sutures in your forehead and 5 sutures in your hand, they should come out in 10-14 days. Follow-up with your regular doctor, urgent care, or emergency department for removal. Keep the area dry and change throughout the day as they get dirty. Return with any signs of infection or emergent concerns. Patient Language: Icelandic Prescriptions: No Action amoxicillin-pot clavulanate 875-125 mg tablet 1 tablet PO Q12H 7 Days Qty: 14 0RF (DME) Aerochamber MV Spacer See Rx Instructions .Route Qty: 1 0RF Rx Instructions: As directed Probiotic 3 billion cell capsule 3,000 mmu cells PO DAILY Rx Instructions: administer with a meal fluoxetine 20 mg capsule 20 mg PO DAILY Qelbree 200 mg capsule,extended release 24hr 200 mg PO DAILY albuterol sulfate 90 mcg/actuation HFA aerosol inhaler 2 inh inhalation Q4H PRN (Reason: shortness of breath, cough, or wheezing) Qty: 8.5 0RF Follow-up/Referrals: Gretchen Serna APRN [Primary Care Provider] - Time of Disposition: 20:24
--- NOTE | 2025-01-18 19:52 | PC.NURSE ---
MD at bedside applying sutures.
[2025-01-18] MEDS: LIDOCAINE 1% LOCAL INJ 10 ML VIAL INFILTRATE (20:00)
[2025-01-18] MEDS: TETANUS,DIPHTHERIA,AC PERTUSSIS ADULT (0.5 ML) BOOSTRIX IM (20:24)
--- OUTSIDE RECORDS SUMMARY | 2025-01-18 20:34 | XMS_ITS | Encounter Summary ---
Author Organization [facility] Address [address] [place] [address] Care Team Providers Care Sales Enablement Specialist Name Role Phone Amando Weir MD Primary Care Provider + Encounter Details Date Type Department Care Team (Late st Contact Info) Description 09/04/2016 Lab Requisition [facility] General Laboratory Services [facility] [address] [place] [address] Andrea Leary MD NO ADDRESS ON FILE Encounter for general adult medical examination without abnormal findings Social History Tobacco Use Types Packs/Day Years Used Date Smoking Tobacco: Never Assessed Sex and Gender Information Value Date Recorded Sex Assigned at Not on file Legal Sex Male 5:50 AM HAND SALTER Gender Identity Not on file Sexual Orientation Not on file documented as of this encounter Plan of Treatment Not on file documented as of this encounter Procedures Procedure Name Priority Date/Time Associated Diagnosis Comments URINALYSIS MICROSCOPY ONLY Routine 09/04/2016 10:30 AM HAND SALTER Encounter for general adult medical examination without abnormal findings CBC WITH DIFFERENTIAL Routine 09/04/2016 10:30 AM HAND SALTER Encounter for general adult medical examination without abnormal findings LIPID PANEL Routine 09/04/2016 10:30 AM HAND SALTER Encounter for general adult medical examination without abnormal findings COMPREHENSIVE METABOLIC PANEL Routine 09/04/2016 10:30 AM HAND SALTER Encounter for general adult medical examination without abnormal findings documented in this encounter Results * (ABNORMAL) URINALYSIS MICROSCOPY ONLY (09/04/2016 10:30 AM HAND SALTER) WBC UA 0-2 0 - 2 /hpf 09/04/2016 4:14 PM [facility] - [facility] RBC UA 0-2 0 - 2 /hpf 09/04/2016 4:14 PM [facility] BACTERIA UA Negative Negative /hpf 09/04/2016 4:14 PM [facility] [employer] LABORATORY SERVICES - [facility] HYALINE CAST 3-5(A) None Seen, 0-2 /lpf 09/04/2016 4:14 PM [facility] Urine URINE SPECIMEN OBTAINED BY CLEAN CATCH PROCEDURE / Unknown Collection / Unknown 09/04/2016 10:30 AM HAND SALTER 09/04/2016 3:40 PM HAND SALTER Andrea Leary MD URINE ORDERABLES Final Result Performing Organization Address City/State/[facility] Co de Phone Number [facility] [employer] [facility]# [id number] [address] [place] [address] * (ABNORMAL) CBC WITH DIFFERENTIAL (09/04/2016 10:30 AM HAND SALTER) WBC 8.2 4.0 - 9.8 K/uL 09/04/2016 4:21 PM [facility] [employer] [facility] RBC 5.31 4.50 - 5.40 M/uL 09/04/2016 4:21 PM [facility] [employer] LABORATORY SERVICES [facility] HEMOGLOBIN 15.7 13.6 - 16.5 g/dL 09/04/2016 4:21 PM [facility] [employer] LAB[facility] SERVICES [facility] HEMATOCRIT 47.1 40.0 - 48.0 % 09/04/2016 4:21 PM [facility] [employer] LABORAT[facility] SERVICES [facility] MCV 88.7 82.0 - 99.0 fL 09/04/2016 4:21 PM [facility] [employer] LAB[facility]ORY SERVICES [facility] MCH 29.6 27.2 - 32.6 pg 09/04/2016 4:21 PM [facility] [employer] LABORATORY SERVICES [facility] MCHC 33.3 31.5 - 35.5 g/dL 09/04/2016 4:21 PM HAND SALTER [employer] LABORATORY SERVICES - [facility] RDW 12.3 11.5 - 14.5 % 09/04/2016 4:21 PM HAND SALTER [employer] LAB[facility]AT[facility] - [facility] RDW-STDEV 39.7 37.1 - 48.7 fL 09/04/2016 4:21 PM [facility] [employer] LAB[facility] - [facility] PLATELETS 338 140 - 350 K/uL 09/04/2016 4:21 PM [facility] [employer] LAB[facility]ATORY [facility] - [facility] MPV 10.4 9.3 - 12.4 fL 09/04/2016 4:21 PM [facility] [employer] LAB[facility] - [facility] NEUTROPHILS 63 % 09/04/2016 4:21 PM [facility] [employer] LAB[facility] - [facility] LYMPHOCYTES 26 % 09/04/2016 4:21 PM [employer]TER [employer] [facility] - [facility] MONOCYTES 6 % 09/04/2016 4:21 PM [facility] [employer] LAB[facility] - [facility] EOSINOPHILS 2 % 09/04/2016 4:21 PM [employer] SALTER [employer] [facility] - [facility] BASOPHILS 2 % 09/04/2016 4:21 PM HAND SALTER [employer] [facility] - [facility] IMMATURE GRANULOCYTES 1 % 09/04/2016 4:21 PM HAND SALTER [employer] [facility] Comment:IG (Immature Granulo cyte) count includes Metamyelocytes, Myelocytes, and Promyelocytes NEUTROPHIL ABSOLUTE 5.18 1.90 - 7.00 K/uL 09/04/2016 4:21 PM [facility] [employer] LAB[facility]ORY [facility] - [facility] LYMPHOCYTE ABSOLUTE 2.16 0.70 - 4.50 K/uL 09/04/2016 4:21 PM HAND SALTER [employer] [facility] - [facility] MONOCYTE ABSOLUTE 0.49 0.10 - 1.30 K/uL 09/04/2016 4:21 PM HAND SALTER [employer] [facility] - [facility] EOSINOPHIL ABSOLUTE 0.19 0.00 - 0.70 K/uL 09/04/2016 4:21 PM [employer] LABORATORY SERVICES - [facility] BASOPHILS ABSOLUTE 0.12 0.00 - 0.20 K/uL 09/04/2016 4:21 PM [facility] [employer] LABORATORY SERVICES - [facility] IMMATURE GRANULOCYTES ABSOLUTE 0.04(H) 0.00 - 0.03 K/uL 09/04/2016 4:21 PM [facility] [employer] LABORATORY SERVICES - [facility] Blood Collection / Unknown 09/04/2016 10:30 AM HAND SALTER 09/04/2016 3:40 PM HAND SALTER us Andrea Leary MD HEMATOLOGY ORDERABLES Final Result [facility] [employer] [facility] CLIA# [id number] [address] [place] [address] * (ABNORMAL) LIPID PANEL (09/04/2016 10:30 AM HAND SALTER) CHOLESTEROL 221(H) <200 mg/dL 09/04/2016 8:10 PM [facility] [employer] [facility] TRIGLYCERIDE 162(H) <150 mg/dL 09/04/2016 8:10 PM [facility] [employer] [facility] HDL 41 40 - 59 mg/dL 09/04/2016 8:10 PM [facility] [employer] [facility] LDL CALCULATED 148(H) <100 mg/dL 09/04/2016 8:10 PM [facility] [employer] [facility] NON-HDL CHOLESTEROL 180(H) <130 mg/dL 09/04/2016 8:10 PM [facility] [employer] [facility] Blood Collection / Unknown 09/04/2016 10:30 AM HAND SALTER 09/04/2016 3:40 PM HAND SALTER Narrative [facility] LABORATORY [facility] - 09/04/2016 8:10 PM HAND SALTER TOTAL CHOLESTEROL mg/dL Desirable <200 Borderline high [...] Leary MD CHEMISTRY ORDERABLES F inal Result [facility] [employer] [facility] CLIA# [id number] [address] [place] [address] ARMIN CHAVEZ [address] * (ABNORMAL) COMPREHENSIVE METABOLIC PANEL (09/04/2016 10:30 AM HAND SALTER) SODIUM 140 136 - 145 mmol/L 09/04/2016 8:10 PM [employer] [facility]AT[facility] - [facility] POTASSIUM 4.8 3.5 - 5.0 mmol/L 09/04/2016 8:10 PM [employer] [facility] - [facility] CHLORIDE 100 98 - 107 mmol/L 09/04/2016 8:10 PM [employer] [facility] CO2 27 22 - 29 mmol/L 09/04/2016 8:10 PM [employer] [facility] CALCIUM 10.3(H) 8.6 - 10.2 mg/dL 09/04/2016 8:10 PM [employer] [facility] BUN 12 6 - 20 mg/dL 09/04/2016 8:10 PM [employer] [facility] CREATININE 0.88 0.67 - 1.17 mg/dL 09/04/2016 8:10 PM [employer] [facility] GLUCOSE 96 74 - 99 mg/dL 09/04/2016 8:10 PM [employer] [facility] TOTAL PROTEIN 8.1 6.7 - 8.6 g/dL 09/04/2016 8:10 PM [employer] [facility] ALBUMIN 5.2 3.5 - 5.2 g/dL 09/04/2016 8:10 PM [employer] [facility] BILIRUBIN TOTAL 0.8 0.3 - 1.2 mg/dL 09/04/2016 8:10 PM [employer] [facility] ALKALINE PHOSPHATASE 84 40 - 129 U/L 09/04/2016 8:10 PM [employer] [facility] AST 27 <41 U/L 09/04/2016 8:10 PM [employer] [facility] ALT 56(H) <42 U/L 09/04/2016 8:10 PM [employer] [facility] GFR >60 >=60 mL/min/1.7 3 sq meter 09/04/2016 8:10 PM [employer] [facility] Comment: eGFR [...] mL/min/1.7 3 sq meter 09/04/2016 8:10 PM HAND SALTER [employer] LABORATORY SERVICES - [facility] ANION GAP 13 8 - 16 mmol/L 09/04/2016 8:10 PM HAND SALTER [employer] LABORATORY SERVICES [facility] Blood Collection / Unknown 09/04/2016 10:30 AM HAND SALTER 09/04/2016 3:40 PM HAND SALTER Andrea Leary MD CHEMISTRY ORDERABLES F inal Result [employer] [facility] [id number] [address] [place] [address] documented in this encounter Visit Diagnoses Diagnosis Encounter for general adult medical examination without abnormal findings Routine general medical examination at a health care facility documented in this encounter Care Teams Sales Enablement Specialist Relationship Specialty Start Date End Date Amando Weir MD [address] [place] [address] PCP - General Internal Medicine 09/04/16 documented as of this encounter
--- OUTSIDE RECORDS SUMMARY | 2025-01-18 20:34 | XMS_ITS | Clinical Summary ---
Author Organization [facility] Address [address] [place] [address] [place] [address] Care Team Providers Care Physical Therapy Professor Name Role Phone Amando Weir MD Primary [...] on file Legal Sex Male 5:50 AM NEON TUBE PUMPER Gender Identity Not on file Sexual Orientation Not on file Last Filed Vital Signs Vital Sign Reading Time Taken Comments Blood Pressure 110/80 08/09/2009 10:56 AM NEON TUBE PUMPER Pulse 72 08/09/2009 10:56 AM NEON TUBE PUMPER Temperature 36.4 C (97.6 F) 08/09/2009 10:56 AM NEON TUBE PUMPER Respiratory Rate 8 08/09/2009 10:56 AM NEON TUBE PUMPER Oxygen Saturation - - Inhaled Oxygen Concentration - - Weight 88 kg (194 lb) 08/09/2009 10:56 AM NEON TUBE PUMPER Height 188 cm (6' 2) 08/09/2009 10:56 AM NEON TUBE PUMPER Body Mass Index 24.91 08/09/2009 10:56 AM NEON TUBE PUMPER Plan of Treatment Health Maintenance Due Date Last Done Comments DTAP/TDAP/TD VACCINES (1 - Tdap) 2001 HEPATITIS B VACCINES (1 of 3 - 19+ 3-dose series) 2001 INFLUENZA VACCINE (#1) 2024 HPV VACCINES Aged Out No longer eligi ble based on patient's age to complete this topic Care Teams Physical Therapy Professor Relationship Specialty Start Date End Date Amando Weir MD [address] [place] [phone] PCP - General Internal Medicine 09/04/16
--- OUTSIDE RECORDS SUMMARY | 2025-01-18 20:34 | XMS_ITS | Clinical Summary ---
Author Organization [facility] Care Team Providers Care Stamp Presser Name Role Phone Unavailable Primary Care Provider Unavailabl e Social History Tobacco Use Types Packs/Day Years Used Date Smoking Tobacco: Never Assessed Sex and Gender Information Value Date Recorded Sex Assigned at Not on file Legal Sex Male 12:13 PM PHONE REPRESENTATIVE Gender Identity Not on file Sexual Orientation [...]
--- OUTSIDE RECORDS SUMMARY | 2025-01-18 20:34 | XMS_ITS | Encounter Summary ---
Author Organization [facility] Address [address] [place] [address] Care Team Providers Care Shipmaster Name Role Phone Amando Weir MD Primary Care Provider + Encounter Details Date Type Department Care Team (Late st Contact Info) Description 2018 Lab Requisition [facility] [address] [place] [address] [place] [address] [facility] [address] [place] [id number] Encounter for general adult medical examination without abnormal findings Social History Tobacco Use Types Packs/Day Years Used Date Smoking Tobacco: Never Assessed Sex and Gender Information Value Date Recorded Sex Assigned at Not on file Legal Sex Male 5:50 AM [employer] Gender Identity Not on file Sexual Orientation [...] CBC WITH DIFFERENTIAL (2018 8:18 AM CDT) [facility] WBC 5.5 4.0 - 9.8 K/uL 2018 5:05 PM CDT [facility] RBC 5.18 4.50 - 5.40 M/uL 2018 5:05 PM CDT [facility] HEMOGLOBIN 14.8 13.6 - 16.5 g/dL 2018 5:05 PM CDT [facility] HEMATOCRIT 46.8 40.0 - 48.0 % 2018 5:05 PM CDT [facility] MCV 90.3 82.0 - 99.0 fL 2018 5:05 PM CDT [facility] MCH 28.6 27.2 - 32.6 pg 2018 5:05 PM CDT [facility] MCHC 31.6 31.5 - 35.5 g/dL 2018 5:05 PM CDT [facility] RDW 12.3 11.5 - 14.5 % 2018 5:05 PM CDT [facility] RDW-STDEV 40.6 37.1 - 48.7 fL 2018 5:05 PM CDT [facility] PLATELETS 331 140 - 350 K/uL 2018 5:05 PM CDT [facility] MPV 10.5 9.3 - 12.4 fL 2018 5:05 PM CDT [facility] NEUTROPHILS 50 % 2018 5:05 PM CDT [facility] LYMPHOCYTES 36 % 2018 5:05 PM CDT [facility] MONOCYTES 9 % 2018 5:05 PM CDT [facility] EOSINOPHILS 3 % 2018 5:05 PM CDT [facility] BASOPHILS 2 % 2018 5:05 PM CDT [facility] IMMATURE GRANULOCYTES 0 % 2018 5:05 PM CDT [facility] NEUTROPHIL ABSOLUTE 2.74 1.90 - 7.00 K/uL 2018 5:05 PM CDT [facility] LYMPHOCYTE ABSOLUTE 1.96 0.70 - 4.50 K/uL 2018 5:05 PM CDT [facility] MONOCYTE ABSOLUTE 0.49 0.10 - 1.30 K/uL 2018 5:05 PM CDT [facility] EOSINOPHIL ABSOLUTE 0.15 0.00 - 0.70 K/uL 2018 5:05 PM CDT [facility] BASOPHILS ABSOLUTE 0.10 0.00 - 0.20 K/uL 2018 5:05 PM CDT [facility] IMMATURE GRANULOCYTES ABSOLUTE 0.02 0.00 - 0.03 K/uL 2018 5:05 PM CDT [facility] Blood Collection / Unknown 2018 8:18 AM CDT 2018 4:41 PM CDT Edil Smiley MD HEMATOLOGY ORDERABLES Final Result [facility]# [id number] [address] [facility] [place] [address] * (ABNORMAL) LIPID PANEL (2018 8:18 AM CDT) CHOLESTEROL 222(H) <200 mg/dL 2018 6:46 PM CDT [facility] TRIGLYCERIDE 96 <150 mg/dL 2018 6:46 PM CDT [facility] HDL 33(L) 40 - 59 mg/dL 2018 6:46 PM CDT [facility] - . [facility] LDL CALCULATED 170(H) <100 mg/dL 2018 6:46 PM CDT [facility] - . [facility] NON-HDL CHOLESTEROL 189(H) <130 mg/dL 2018 6:46 PM CDT [facility] Blood Collection / Unknown 2018 8:18 AM CDT 2018 4:41 PM CDT Narrative [facility] - 2018 6:46 PM CDT TOTAL [...] Smiley MD CHEMISTRY ORDERABLES Final R esult [facility]# [id number] [address] [place] [address] * (ABNORMAL) COMPREHENSIVE METABOLIC PANEL (2018 8:18 AM CDT) SODIUM 142 136 - 145 mmol/L 2018 6:46 PM T [facility] POTASSIUM 4.7 3.5 - 5.0 mmol/L 2018 6:46 PM COUNTS INCLUDE 234 BEDS AT THE [facility] CHLORIDE 104 98 - 107 mmol/L 2018 6:46 PM T [facility] CO2 27 22 - 29 mmol/L 2018 6:46 PM T [facility] CALCIUM 9.7 8.6 - 10.2 mg/dL 2018 6:46 PM T [facility] BUN 16 6 - 20 mg/dL 2018 6:46 PM COUNTS INCLUDE 234 BEDS AT THE [facility] CREATININE 0.79 0.67 - 1.17 mg/dL 2018 6:46 PM COUNTS INCLUDE 234 BEDS AT THE [facility]ORATORY SERVICES [facility] GLUCOSE 104(H) 74 - 99 mg/dL 2018 6:46 PM T [facility] TOTAL PROTEIN 7.4 6.7 - 8.6 g/dL 2018 6:46 PM COUNTS INCLUDE 234 BEDS AT THE [facility] LABORATORY [facility] ALBUMIN 5.1 3.5 - 5.2 g/dL 2018 6:46 PM T [facility] BILIRUBIN TOTAL 0.5 0.3 - 1.2 mg/dL 2018 6:46 PM COUNTS INCLUDE 234 BEDS AT THE [facility] LABORATORY [facility] ALKALINE PHOSPHATASE 82 40 - 129 U/L 2018 6:46 PM COUNTS INCLUDE 234 BEDS AT THE [facility] LABORATORY [facility] AST 20 <41 U/L 2018 6:46 PM COUNTS INCLUDE 234 BEDS AT THE [facility] ALT 42(H) <42 U/L 2018 6:[address] [facility] GFR >60 >=60 mL/min/1.7 3 sq meter 2018 6:46 PM COUNTS INCLUDE 234 BEDS AT THE [facility] [employer] [facility] Comment: eGFR has not been validated for [...] 3 sq meter 2018 6:46 PM T [facility] ANION GAP 11 8 - 16 mmol/L 2018 6:46 PM COUNTS INCLUDE 234 BEDS AT THE [facility] Blood Collection / Unknown 2018 8:18 AM CDT 2018 4:41 PM CDT [facility] - 2018 6:46 PM CDT Samples containing indocyanine green cause interferences on Total and/or Direct Bilirubin and must not be measured. Edil Smiley MD CHEMISTRY ORDERABLES Final R esult [facility]# [id number] [address] [place] [address] documented in this encounter Visit Diagnoses Diagnosis Encounter for general adult medical examination without abnormal findings Routine general medical examination at a health care facility documented in this encounter Care Teams Shipmaster Relationship Specialty Start Date End Date Amando Weir MD [address] [place] [address] PCP - General Internal Medicine 09/04/16 documented as of this encounter
== END 2025-01-18 20:48 | disposition home or self-care (01) ==
LOC: ANHED 20:33
PROVIDERS: Emergency Provider Student in an Organized Health Care Education/Training Program; PCP Nurse Practitioner Family
DX: S01.81XA Laceration without foreign body of other part of head, initial encounter (principal); S61.412A Laceration without foreign body of left hand, initial encounter; W11.XXXA Fall on and from ladder, initial encounter; F32.A Depression, unspecified; Z87.891 Personal history of nicotine dependence
CPT/HCPCS: 12013; 90471; 90715; 99283; J2003

== ENCOUNTER 2025-06-17 10:35 | Emergency (ER) | payer OTHER, SELFPAY ==
[2025-06-17 10:48] VITALS: BP 166/98; PULSE 93; RESP 16; TEMP 35.7; O2SAT 97
[2025-06-17 11:12] LABS: EDCOVIDSCREEN Negative (Negative); EDINFLUASCREEN Negative (Negative); EDINFLUBSCREEN Negative (Negative); EDSTREPNEGPOS1 Negative (Negative)
--- NOTE | 2025-06-17 12:27 | ED.URI ---
HPI - URI/Sore Throat General Chief Complaint: Upper Respiratory Infection Stated Complaint: SINUS CONGESTION Time Seen by Provider: 06/17/25 11:29 Source: patient and RN notes reviewed Mode of arrival: ambulatory Limitations: no limitations History of Present Illness HPI Narrative: 44-year-old male patient presents today complaining 4 day history of sore throat, rhinorrhea, cough. States the was possibly exposed to COVID-19. Denies fever or shortness of breath. He has been taking ibuprofen and NyQuil with mild improvement. Related Data Allergies Allergy/AdvReac Type Severity Reaction Status Date / Time No Known Allergies Allergy Verified 06/17/25 10:49 PMFSH Past Medical History Medical History BMI 31.0-31.9,adult Upper respiratory infection with cough and congestion Other viral warts Onychomycosis Hyperlipidemia, unspecified High blood cholesterol level Encounter for vasectomy assessment Athlete's foot on right Colon cancer screening Irritable bowel syndrome with diarrhea Irritable bowel syndrome with diarrhea IBS (irritable bowel syndrome) Depression Surgical History Surgical History History of hand surgery L thumb tendon surgery Family History Family History Father Hypertension Patient's father is in good health Mother Patient's mother is in good health Sibling Patient's brother is in good health Other Skin cancer Social History Social History Smoking status: Never smoker Second hand tobacco smoke exposure: No Alcohol intake: current Alcohol use details: social Substance use: never Substance use type: does not use Do You Feel Safe in your Home?: Yes Lack of Transportation: No Lack of Food: Never True Current Housing: I Have Housing Concerned About Future Housing: No Difficulty Paying Gas/Electric Bills: No Difficulty Paying for Meds: No Currently Unemployed: No Education: Bachelor's Degree Difficulty w/ Childcare or Family Care: No Living arrangements: with family Occupation/Education: occupation 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 Please see nursing chart for further information. There is no relevant family history pertinent to the presenting complaint Exam Narrative: GENERAL: Mildly ill-appearing, well-nourished, and in no acute distress. HEAD: Normocephalic, atraumatic. EYES: EOMI. No redness or drainage. Conjunctivae normal. ENT: Mucous membranes pink and moist. Nares clear. + rhinorrhea. TMs normal bilaterally. Throat mildly erythematous without edema or exudate. Uvula midline. NECK: Normal AROM. Supple. No lymphadenopathy. CHEST: No respiratory distress. Clear to auscultation. HEART: Regular rate and rhythm. No murmur appreciated. EXTREMITIES: Normal range of motion. No edema. SKIN: Warm, dry, no rash. Capillary refill normal. Normal skin turgor. NEURO: No focal deficits. Alert and oriented x3. Gait steady. PSYCH: Normal affect. No signs of depression or anxiety. Course Course Level of Care: Express Care Visit Vital Signs Vital signs: Vital Signs Temperature 96.3 F L 06/17/25 10:48 Pulse Rate 93 06/17/25 10:48 Respiratory Rate 16 06/17/25 10:48 Blood Pressure 166/98 H 06/17/25 10:48 Pulse Oximetry 97 06/17/25 10:48 Temperature 96.3 F L 06/17/25 10:48 Pulse Rate 93 06/17/25 10:48 Respiratory Rate 16 06/17/25 10:48 Blood Pressure 166/98 H 06/17/25 10:48 Pulse Oximetry 97 06/17/25 10:48 Reviewed MDM - URI/Sore Throat MDM Narrative Medical decision making narrative: 44-year-old male patient presents today complaining 4 day history of sore throat, rhinorrhea, cough. States the was possibly exposed to COVID-19. Denies fever or shortness of breath. He has been taking ibuprofen and NyQuil with mild improvement. Upon exam, patient is mildly ill appearing with rhinorrhea and a mildly erythematous throat. Very tight cough noted. Influenza negative, COVID negative, rapid strep negative. Strep culture pending. Symptoms likely viral in etiology. Discussed [id number] medication use and duration of illness. Prescriptions for prednisone and Cherritussin sent to pharmacy for bronchitis/cough. Anticipatory guidance given. Vital signs stable with mildly elevated blood pressure. Differential Diagnosis Differential diagnosis: Likely upper respiratory infection, viral infection, bronchitis, influenza and other (Strep throat, COVID-19) Lab Data Attestation: I reviewed the patient's lab results. Labs: Lab Results 06/17/25 Range/Units 10:47 POC Influenza A Ag Negative (Negative) POC Influenza B Ag Negative (Negative) POC SARS CoV-2 Ag Negative (Negative) POC Grp A Strep Screen Negative (Negative) Critical Care Time Critical Care Time Critical Care Time: No Discharge Plan Discharge Clinical Impression: Bronchitis Upper respiratory infection Qualifiers: URI type: unspecified URI Qualified Code(s): J06.9 - Acute upper respiratory infection, unspecified Patient Disposition: Home Condition: Stable Instructions: Acute Bronchitis (ED) Additional Instructions: Your COVID-19, influenza, and rapid strep swab were negative today at [facility]. You will be notified in a few days if the culture comes back positive for strep, and appropriate antibiotics will be called in for you at that time. Your symptoms are likely due to a viral illness, which is not treated with antibiotics. Viral symptoms can be present for up to 7-10 days. Take Tylenol or ibuprofen for fever or pain. Take the prednisone and Cheratussin as prescribed. Do not drive within 6 hours of taking the Cheratussin as it can make you drowsy. Rest and stay hydrated. Follow up with your PCP in 5 days if symptoms are not improving. Go to the ER immediately if you have any difficulty breathing or swallowing. Patient Language: Ukrainian Prescriptions: New codeine-guaifenesin 10-100 mg/5 mL liquid 5 ml PO Q6H PRN (Reason: cough) Qty: 120 0RF prednisone 50 mg tablet 50 mg PO DAILY 5 Days Qty: 5 0RF Follow-up/Referrals: Michel De Santiago APRN [Primary Care Provider, Internal Medicine] Time of Disposition: 11:41
== END 2025-06-17 11:46 | disposition home or self-care (01) ==
PROVIDERS: Emergency Provider Nurse Practitioner; PCP Nurse Practitioner
DX: J40 Bronchitis, not specified as acute or chronic (principal); J06.9 Acute upper respiratory infection, unspecified; E78.5 Hyperlipidemia, unspecified; Z20.822 Contact with and (suspected) exposure to COVID-19
CPT/HCPCS: 87081; 87426; 87804; 87880; 99213; G0463